=== PATIENT | male | born 1985 | race African-American/Black ===

== ENCOUNTER 2021-11-21 16:38 | Emergency (ER) | payer SELFPAY ==
[~2021-11-21] VITALS: Ht 190.5 cm; Wt 72.7 kg
[~2021-11-21 16:38] MED LIST: DOXYCYCLINE 10100 MG PO; NORCO 325 MG-51 TAB PO
[2021-11-21 17:02] VITALS: TEMP 98.6
[2021-11-21 18:33] VITALS: BP 104/72
[2021-11-21] MEDS ORDERED: NORCO 325 MG-51 TAB PO (18:45)
[2021-11-21 19:35] VITALS: PULSE 72
== END 2021-11-21 19:35 | disposition home or self-care (01) ==
LOC: COL.ER 16:38
DX: M54.2 Cervicalgia (principal); G89.29 Other chronic pain; R51.9 Headache, unspecified; M54.6 Pain in thoracic spine; Z88.8 Allergy status to other drugs, medicaments and biological substances
CPT/HCPCS: J0780; J1790; J1885; J2360